=== PATIENT | male | born 1970 | race Caucasian/White ===

== ENCOUNTER 2020-03-21 09:25 | Emergency (ER) | payer MEDICAID ==
[2020-03-21] MEDS ORDERED: XYLOCAINE 1% HCL 20 ML MDV IJ ONE ×2 (09:26→10:37)
[2020-03-21] MEDS ORDERED: XYLOCAINE 1% HCL 20 ML MDV ONE (09:48)
--- NOTE | 2020-03-21 09:48 | ERPHSYRPT ---
- History of Present Illness Time Seen by Provider: 03/21/20 09:40 Source: patient Exam Limitations: no limitations Patient Subjective Stated Complaint: pt here nail to left 5th finger with a nail gun today, Triage Nursing Assessment: pt alert, walked in, resp easy, has nail through glove and left ring finger . no bleeding, ate last at 0730 Physician History: This is a right-handed white male who is working with a power nail gun for rigoberto this morning. His last meal was at 730 this morning. Patient accidentally shot a nail into his left fourth digit. The patient arrives with his glove in place. His last tetanus injection was 1 year ago. Occurred: just prior to arrival Method of Injury: direct blow Quality: constant, aching, throbbing Severity of Pain-Max: moderate Severity of Pain-Current: moderate Extremities Pain Location: 4th finger: left Modifying Factors: Improves With: nothing Associated Symptoms: none Allergies/Adverse Reactions: No Known Drug Allergies Allergy (Unverified 03/21/20 09:37) Home Medications: No Reportable Medications [No Reported Medications] 03/21/20 [History] Hx Tetanus, Diphtheria Vaccination/Date Given: Yes (2018) Hx Influenza Vaccination/Date Given: No Hx Pneumococcal Vaccination/Date Given: No Immunizations Up to Date: Yes Travel Risk - International Travel Have you traveled outside of the country in past 3 weeks: No - Coronavirus Screening Are you exhibiting any of the following symptoms?: No Close contact with a COVID-19 positive Pt in past 14-21 Days: No - Review of Systems Constitutional: No Symptoms Eyes: No Symptoms Ears, Nose, & Throat: No Symptoms Respiratory: No Symptoms Cardiac: No Symptoms Abdominal/Gastrointestinal: No Symptoms Genitourinary Symptoms: No Symptoms Musculoskeletal: Injury (Left fourth digit rigoberto nail.) Skin: No Symptoms Neurological: No Symptoms Psychological: No Symptoms Endocrine: No Symptoms Hematologic/Lymphatic: No Symptoms Immunological/Allergic: No Symptoms All Other Systems: Reviewed and Negative - Past Medical History Pertinent Past Medical History: No Neurological History: No Pertinent History ENT History: No Pertinent History Cardiac History: No Pertinent History Respiratory History: No Pertinent History Endocrine Medical History: No Pertinent History Musculoskeletal History: No Pertinent History GI Medical History: No Pertinent History History: No Pertinent History Psycho-Social History: No Pertinent History Male Reproductive Disorders: No Pertinent History - Past Surgical History Past Surgical History: Yes Neuro Surgical History: No Pertinent History Cardiac: No Pertinent History Respiratory: No Pertinent History Gastrointestinal: No Pertinent History Genitourinary: No Pertinent History Musculoskeletal: Orthopedic Surgery Male Surgical History: No Pertinent History Other Surgical History: shoulder - Social History Smoking Status: Current every day smoker Exposure to second hand smoke: Yes Drug Use: none Patient Lives Alone: No - Nursing Vital Signs Nursing Vital Signs: Initial Vital Signs Temperature 98.0 F 03/21/20 09:31 Pulse Rate 108 H 03/21/20 09:31 Respiratory Rate 16 03/21/20 09:31 Blood Pressure 140/97 03/21/20 09:31 O2 Sat by Pulse Oximetry 98 03/21/20 09:31 Pain Scale Pain Intensity 9 - Physical Exam General Appearance: mild distress, alert, anxiety Eyes, Ears, Nose, Throat Exam: normal ENT inspection, moist mucous membranes Neck Exam: normal inspection, non-tender, supple, full range of motion Cardiovascular/Respiratory Exam: chest non-tender Abdominal Exam: non-tender Back Exam: normal inspection, normal range of motion, No CVA tenderness, No vertebral tenderness Shoulder Exam: normal inspection, non-tender, no evidence of injury, normal ROM Elbow/Forearm Exam: normal inspection, non-tender, no evidence of injury, normal ROM Wrist Exam: normal inspection, non-tender, no evidence of injury, normal ROM Hand Exam: normal ROM, bone tenderness (Rigoberto nail mid left fourth digit), soft tissue tenderness Neuro/Tendon Exam: normal sensation, normal motor functions, normal tendon functions Mental Status Exam: alert, oriented x 3, cooperative Skin Exam: normal color, warm, dry SpO2 Interpretation: normal SpO2: 98 O2 Delivery: Room Air - Course Nursing assessment & vital signs reviewed: Yes Ordered Tests: Active Orders 24 hr Category Date Time Status HAND (MINIMUM 3 VIEWS) Stat Exams 03/21/20 09:33 Completed Medication Summary Generic Name Dose Route Start Last Admin Trade Name Freq PRN Reason Stop Dose Admin Lidocaine HCl 5 ml 03/21/20 10:37 Xylocaine 1% Hcl 20 Ml Mdv IJ 03/21/20 10:38 STAT ONE Discontinued Medications Generic Name Dose Route Start Last Admin Trade Name Freq PRN Reason Stop Dose Admin Ceftriaxone Sodium 1,000 mg 03/21/20 10:26 Rocephin 1000 Mg Inj IM 03/21/20 10:27 STAT ONE Lidocaine HCl Confirm 03/21/20 09:48 Xylocaine 1% Hcl 20 Ml Mdv Administered 03/21/20 09:49 Dose 5 ml .ROUTE .STK-MED ONE - Progress Progress: improved Progress Note: 03/21/20 10:42 X-ray of left hand reveals a rigoberto nail going through and into and out of the patient's distal portion of mid phalanx possibly involving the joint space. This was confirmed with the radiologist. Medical decision making: This patient requires a hand surgeon. I contacted Dr. Rob Clayton. I spoke with him and reviewed the patient history and physical findings as well as x-ray findings. I sent him a brief video as well as the x- rays of the left hand. He recommends that the patient go directly to the [facility] in [place] where he is. Patient was told not to stop and eat or drink anything. Patient was given a gram of Rocephin intramuscularly as well as lidocaine 1% plain approximately 3 to 4 cc was used to anesthetize the area. Counseled pt/family regarding: diagnosis, need for follow-up, rad results - Departure Departure Disposition: Home Clinical Impression: Foreign body of left ring finger Condition: Stable Critical Care Time: No Additional Instructions: Go directly to the [facility]. The directions were provided. Do not stop to eat or drink anything.
--- NOTE | 2020-03-21 09:56 | XRAY ---
Indication: Nail injury. Comparison: None 3 view left hand demonstrates intact nail traversing bony distal 4th phalanx. No other bony, articular, or soft tissue abnormalities.
[2020-03-21] MEDS ORDERED: Rocephin 1000 MG INJ IM ONE (10:26)
[2020-03-21] MEDS ORDERED: Rocephin 1000 MG INJ ONE (10:37)
[2020-03-21 11:05] VITALS: BP 149/107; PULSE 86; O2SAT 100
== END 2020-03-21 11:04 | disposition home or self-care (01) ==
LOC: ED 09:25
DX: S61.245A Puncture wound with foreign body of left ring finger without damage to nail, initial encounter (principal); W29.4XXA Contact with nail gun, initial encounter
CPT/HCPCS: 73130; 96372; 99284; J0696